=== PATIENT | male | born 1955 | race Caucasian/White ===

== ENCOUNTER 2021-12-19 07:43 | Outpatient (CLI) | payer OTHER, SELFPAY ==
--- NOTE | 2021-12-19 09:39 | W.ANESCHARGE ---
Anesthesia Charges Start Date/Time Anesthesia Start Date: 12/19/21 Anesthesia Start Time: 08:55 Stop Date/Time Anesthesia Stop Date: 12/19/21 Anesthesia Stop Time: 09:34 Summary Emergency: No
--- NOTE | 2021-12-19 09:45 | W.ANESCHARGE ---
Anesthesia Charges Start Date/Time Anesthesia Start Date: 12/19/21 Anesthesia Start Time: 08:55 Stop Date/Time Anesthesia Stop Date: 12/19/21 Anesthesia Stop Time: 09:34 Summary Emergency: No
== END 2021-12-19 07:44 | disposition home or self-care (01) ==
LOC: OP CLINIC 07:44
PROVIDERS: PCP Family Medicine; Visit Provider Internal Medicine Gastroenterology
DX: Z12.11 Encounter for screening for malignant neoplasm of colon (principal); K63.5 Polyp of colon; Z86.010 Personal history of colon polyps
CPT/HCPCS: 00811; 45380; 45385; J2704

== ENCOUNTER 2023-02-05 11:28 | Emergency (ER) | payer MEDICARE, BC, SELFPAY ==
[2023-02-05 11:57] VITALS: BP 105/68; PULSE 86; RESP 18; TEMP 36.1; O2SAT 96; BMI 27.3
[2023-02-05 12:12] LABS: Appearance Urine Clear (Clear); Bilirubin Urine Negative (Negative); Blood Urine 2+ (Negative); Glucose Urine Negative (Negative); Ketones Urine Negative (Negative); Leukocyte Esterase Urine Negative (Negative); Nitrite Urine Negative (Negative); Protein Urine Negative (Negative); Specific Gravity Urine >= 1.030 (1.000-1.030); Urobilinogen Urine 0.2 (0.2-1.0)
[2023-02-05 12:13] LABS: Color Urine Yellow (Yellow)
[2023-02-05 12:23] LABS: Squamous Epithelial Cell Urine Few (None-Few); WBC Urine 0-2 (0-5)
--- NOTE | 2023-02-05 12:30 | CRLHL7_ITS ---
For Patients: As a result of the Century Cures Act, medical imaging exams and procedure reports are released immediately into your electronic medical record. You may view this report before your referring provider. If you have questions, please contact your health care provider. INDICATION: Left flank pain, looking for kidney stone COMPARISON: None. TECHNIQUE: CT of the abdomen and pelvis without intravenous contrast. Multiplanar axial, coronal, and sagittal reformats were reconstructed. Intravenous contrast: None. Oral contrast was not administered. FINDINGS: Lung bases: Normal. Liver: Normal size and non-contrast attenuation. Gallbladder and biliary tree: Normal gallbladder. No biliary duct dilation. Pancreas: Normal. Spleen: Normal size. Adrenal glands: Normal. No nodules. Kidneys and bladder: Normal size and position. No obvious cyst or mass. There is a 3 mm calculus in the left distal ureter just above the ureterovesicular junction. There is mild upstream ureterectasis and pelviectasis. No urinary tract dilation. The urinary bladder is normal. GI: Normal. No dilated segments. No abnormal bowel wall thickening. Moderate stool burden. The appendix is normal. Vessels: Normal caliber abdominal aorta with few calcified atherosclerotic plaques. Peritoneum: No free fluid. Lymph nodes: No adenopathy. Pelvis: Physiologic appearance of the reproductive organs. Bones: No fractures. Few scattered bone islands. Mild multilevel degenerative change of the spine. Abdominal wall: There is a 1.6 x 3.2 cm fluid density lesion along the left anterior pelvic sidewall (series 2, image 120). No adjacent inflammatory stranding or periostitis. IMPRESSION: 1. There is a 3 mm left distal ureteral calculus with associated urinary tract dilatation. 2. Nonspecific small cyst or fluid collection along the anterior left pelvic sidewall. Correlate with the patient`s medical and surgical history. If further imaging is deemed clinically necessary, MR pelvis without and with contrast would likely be most helpful. Please note that all CT scans at this facility use dose modulation, iterative reconstruction, and/or weight-based dosing when appropriate to reduce radiation dose to as low as reasonably achievable. Dictated by Joseline Bejarano MD @ 02/05/2023 1:38:05 PM (Electronically Signed)
--- NOTE | 2023-02-05 12:31 | ED_ITS ---
HPI - General Adult General Chief complaint: Back Injury/Pain Stated complaint: Pain in lower L back Time Seen by Provider: 02/05/23 11:29 History of Present Illness HPI narrative: This 67-year-old male comes in because of rather sudden onset of left flank pain when he was driving toward the [employer]. He states that he had left flank pain and became nauseated with diaphoresis and felt like he would need to vomit. His pain has mostly subsided currently. He states that he had a prostate removal procedure a month or 2 ago and since then has been voiding urine easily until just today were he feels that is more hesitant. He does not have a history of kidney stones and does not know of any family history also of kidney stones. Related Data Home Medications Medication Instructions Recorded Confirmed atorvastatin 20 mg tablet 20 mg PO DAILY 01/16/22 02/05/23 metoprolol succinate 25 mg 25 mg PO DAILY 01/16/22 02/05/23 tablet,extended release 24 hr aspirin 81 mg tablet,delayed 81 mg PO DAILY 07/09/22 02/05/23 release cefdinir 300 mg capsule 300 mg PO BID 07/09/22 07/09/22 ondansetron 4 mg disintegrating 4 mg PO Q8H PRN 07/09/22 07/09/22 tablet oxybutynin chloride 5 mg tablet 5 mg PO 3XD 07/09/22 07/09/22 oxycodone 5 mg tablet PO 07/09/22 tadalafil 5 mg tablet 5 mg PO DAILY 07/09/22 02/05/23 Previous Rx's Medication Instructions Recorded benzonatate 200 mg capsule 200 mg PO BID-TID PRN cough #14 01/16/22 caps hydrocodone 5 mg-acetaminophen 325 1 tab PO Q4-6H PRN pain #15 tabs 02/05/23 mg tablet ketorolac 10 mg tablet 10 mg PO Q8H 5 days #15 tabs 02/05/23 ondansetron HCl 4 mg tablet 4 mg PO Q6H #15 tabs 02/05/23 Allergies Allergy/AdvReac Type Severity Reaction Status Date / Time iodine Allergy Verified 01/16/22 16:24 Review of Systems Status of ROS: Reports: 10 or more systems reviewed and unremarkable except as noted in History and below Narrative: Constitutional: No fevers, no weight gain or loss. Eyes: No discharge. No vision changes. HENT: No congestion, no sore throat, no ear pain. Cardiovascular: No chest pain, no palpitations. Respiratory: No shortness of breath, no wheezes, no cough. Gastrointestinal: Left flank pain with nausea and urge to vomit. Genitourinary: No dysuria, no hematuria. Musculoskeletal: Normal range of motion. Skin: No rashes, no pruritis. Neurological: No dizziness, weakness, sensory change, speech change. Endo/Heme/Allergies: No bruising or bleeding. No polydipsia. Pysch: no suicidality, no anxiety, no insomnia. All other systems reviewed and are negative. PFSH PFS Social History Smoking Status: Never smoker How often do you have a drink containing alcohol: 4 or more times a week AUDIT-C Alcohol total score: 4 Non-prescribed substance use: denies use Exam Narrative: Exam Narrative: Constitutional: Well-developed, well-nourished, no acute distress. HEENT: Normocephalic, atraumatic. Neck: Normal range of motion. Nontender. Supple. Heart: Regular. No murmurs. Normal rate. Intact distal pulses. Lungs: Clear to auscultation. No chest discomfort. No wheezes, rhonchi, or rales. Abdomen: Normal bowel sounds. Nontender. No rebound tenderness. Genitalia: Deferred. Back: No midline tenderness. Normal range of motion. Extremities: Normal range of motion. No injury. Skin: Intact. No rash. Warm. No erythema or pallor. Neurologic: No altered sensation. No weakness. Alert and oriented. Psychiatric: No suicidality. No anxiety or depression. No insomnia. Nursing notes and vitals signs are reviewed. Const: Vital Signs, click to edit/add: Vital Signs - 24 hr 02/05/23 11:57 Temperature 96.9 F L Pulse Rate [Pulse Oximeter] 86 Respiratory Rate 18 Blood Pressure [Ri ght Upper Arm] 105/68 Pulse Oximetry 96 Oxygen Delivery Me thod Room Air Course Vital Signs Vital signs: Initial Vital Signs Temperature 96.9 F L 02/05/23 11:57 Temperature Source Temporal Artery Scan 02/05/23 11:57 Pulse Rate 86 02/05/23 11:57 Respiratory Rate 18 02/05/23 11:57 Blood Pressure 105/68 02/05/23 11:57 Blood Pressure Mean 80 02/05/23 11:57 Blood Pressure Position Sitting 02/05/23 11:57 Pulse Oximetry 96 02/05/23 11:57 Oxygen Delivery Method Room Air 02/05/23 11:57 Vital Signs Temperature 96.9 F L 02/05/23 11:57 Pulse Rate 86 02/05/23 11:57 Respiratory Rate 18 02/05/23 11:57 Blood Pressure 105/68 02/05/23 11:57 Pulse Oximetry 96 02/05/23 11:57 Oxygen Delivery Method Room Air 02/05/23 11:57 Temperature 96.9 F L 02/05/23 11:57 Pulse Rate 86 02/05/23 11:57 Respiratory Rate 18 02/05/23 11:57 Blood Pressure 105/68 02/05/23 11:57 Pulse Oximetry 96 02/05/23 11:57 Oxygen Delivery Method Room Air 02/05/23 11:57 Medications Administered Medications: Generic Name Dose Route Start Last Admin Trade Name Freq PRN Reason Stop Dose Admin Sodium Chloride 1,000 mls @ 1,000 mls/hr 02/05/23 13:00 02/05/23 13:18 0.9 % Sodium Chloride 1000 Ml IV 02/05/23 13:59 1,000 mls/hr .Q1H XUAN Administration Discontinued Medications Generic Name Dose Route Start Last Admin Trade Name Freq PRN Reason Stop Dose Admin Ketorolac Tromethamine 30 mg 02/05/23 12:59 02/05/23 13:19 Ketorolac 30 Mg/Ml Inj IVP 02/05/23 13:00 30 mg ONCE ONE Administration Ondansetron HCl 4 mg 02/05/23 12:59 02/05/23 13:19 Ondansetron 2 Mg/Ml Inj IVP 02/05/23 13:00 4 mg ONCE ONE Administration Medical Decision Making MDM Narrative Medical decision making narrative: This patient comes in with symptoms as described above which are very suspicious for kidney stone. He does not have any prior history of kidney stone. He did provide a urine sample which does show microscopic hematuria but no sign of infection. A CT scan of the abdomen and pelvis is obtained which does show a 3 mm stone in the distal left ureter. The patient did not have any symptoms at the time initially visited with him but he had another attack with pain and nausea. At that time an IV was established where he received Zofran and Toradol which brought great relief to his symptoms. Lab Data Labs: Lab Results 02/05/23 Range/Units Unknown Urine Color Yellow (Yellow) Urine Appearance Clear (Clear) Urine pH 6.0 (5.0-8.5) Ur Specific [place] >= 1.030 (1.000-1.030) Urine Protein Negative (Negative) Urine Glucose (UA) Negative (Negative) Urine Ketones Negative (Negative) Urine Blood 2+ A (Negative) Urine Nitrite Negative (Negative) Urine Bilirubin Negative (Negative) Urine Urobilinogen 0.2 (0.2-1.0) Ur Leukocyte Esterase Negative (Negative) Urine RBC 10-25 A (0-2) Urine WBC 0-2 (0-5) Ur Squamous Epith Cells Few (None-Few) Urine Bacteria None (None) Imaging Data CT scan - abdomen: Radiologist's impression: 1. There is a 3 mm left distal ureteral calculus with associated urinary tract dilatation. 2. Nonspecific small cyst or fluid collection along the anterior left pelvic sidewall. Correlate with the patient`s medical and surgical history. If further imaging is deemed clinically necessary, MR pelvis without and with contrast would likely be most helpful. Discharge Plan Discharge Clinical Impression: Calculus, ureteral Patient Disposition: Home, Self-Care Condition: Stable Additional Instructions: Take medication as needed and indicated. Follow up with MD as scheduled or return if worsening. Prescriptions: New hydrocodone-acetaminophen 5-325 mg tablet 1 tab PO Q4-6H PRN (Reason: pain) Qty: 15 0RF ondansetron HCl 4 mg tablet 4 mg PO Q6H Qty: 15 0RF ketorolac 10 mg tablet 10 mg PO Q8H 5 Days Qty: 15 0RF No Action metoprolol succinate 25 mg tablet extended release 24 hr 25 mg PO DAILY Patient Comments: TAKE 1 TABLET BY MOUTH TWO TIMES DAILY. atorvastatin 20 mg tablet 20 mg PO DAILY benzonatate 200 mg capsule 200 mg PO BID-TID PRN (Reason: cough) Qty: 14 0RF aspirin 81 mg tablet,delayed release (DR/EC) 81 mg PO DAILY oxybutynin chloride 5 mg tablet 5 mg PO 3XD ondansetron 4 mg tablet,disintegrating 4 mg PO Q8H PRN cefdinir 300 mg capsule 300 mg PO BID oxycodone 5 mg tablet PO tadalafil 5 mg tablet 5 mg PO DAILY Follow Up/Referrals: Asael Riley MD [Primary Care Provider] - Stand Alone Forms: [employer] Info Instructions
[2023-02-05] MEDS: 0.9 % SODIUM CHLORIDE 1000 ml 1,000 ML IV (13:18)
[2023-02-05] MEDS: ONDANSETRON 2 MG/ML inj 4 MG IVP (13:19)
[2023-02-05] MEDS: KETOROLAC 30 MG/ML inj IVP (13:19)
--- NOTE | 2023-02-05 13:19 | ED.NURSE ---
sudden nausea, vomitting and pain. resolved after a few minutes.
[2023-02-05 13:58] VITALS: BP 121/83; PULSE 51; RESP 16; O2SAT 99
== END 2023-02-05 14:10 | disposition home or self-care (01) ==
PROVIDERS: Emergency Provider Emergency Medicine Emergency Medical Services; PCP Family Medicine
DX: N20.1 Calculus of ureter (principal)
CPT/HCPCS: 74176; 81001; 96374; 96375; 99284; J1885; J2405; J7030

== ENCOUNTER 2023-04-09 07:43 | Outpatient (CLI) | payer MEDICARE, BC, SELFPAY ==
--- NOTE | 2023-04-09 09:10 | W.ANESCHARGE ---
Anesthesia Charges Start Date/Time Anesthesia Start Date: 04/09/23 Anesthesia Start Time: 08:42 Stop Date/Time Anesthesia Stop Date: 04/09/23 Anesthesia Stop Time: 09:08
--- NOTE | 2023-04-09 12:13 | W.ANESCHARGE ---
Anesthesia Charges Start Date/Time Anesthesia Start Date: 04/09/23 Anesthesia Start Time: 08:42 Stop Date/Time Anesthesia Stop Date: 04/09/23 Anesthesia Stop Time: 09:08
== END 2023-04-09 07:44 | disposition home or self-care (01) ==
LOC: OP CLINIC 07:45
PROVIDERS: PCP Family Medicine; Visit Provider Internal Medicine Gastroenterology
DX: Z12.11 Encounter for screening for malignant neoplasm of colon (principal); K63.5 Polyp of colon; Z86.010 Personal history of colon polyps; Z98.890 Other specified postprocedural states
CPT/HCPCS: 00811; 45380; 88305; J2704

== ENCOUNTER 2023-12-27 09:00 | Outpatient (RCR) | payer MEDICARE, BC, SELFPAY | END 2024-04-23 09:55 | disposition home or self-care (01) | PROVIDERS: PCP Family Medicine; Visit Provider Family Medicine | DX: M54.16 Radiculopathy, lumbar region (principal); R26.2 Difficulty in walking, not elsewhere classified; Z51.89 Encounter for other specified aftercare | CPT/HCPCS: 97012; 97110; 97112; 97162; 97535 ==

== ENCOUNTER 2024-01-22 08:22 | Outpatient (CLI) | payer MEDICARE, BC, SELFPAY | END 2024-01-22 08:23 | disposition home or self-care (01) | LOC: INJ CL 08:24 | PROVIDERS: PCP Family Medicine; Visit Provider Family Medicine | DX: M54.16 Radiculopathy, lumbar region (principal); M48.062 Spinal stenosis, lumbar region with neurogenic claudication | CPT/HCPCS: 64483; 64484; J1100; Q9966 ==